=== PATIENT | female | born 1980 | race Caucasian/White ===

== ENCOUNTER → 2017-01-01 | Outpatient (CLI) | payer BC | END | disposition home or self-care (01) | LOC: RADUSWWP 07:47 | PROVIDERS: ATTEND Internal Medicine | DX: Z53.9 Procedure and treatment not carried out, unspecified reason (principal) ==

== ENCOUNTER → 2017-01-01 | Outpatient (CLI) | payer BC ==
--- NOTE | 2017-01-01 10:42 | US ---
EXAMINATION TYPE: US renal artery duplex complete DATE OF EXAM: 01/01/2017 COMPARISON: NONE CLINICAL HISTORY: I10 essential hypertension. HTN for years MEASUREMENTS: RENAL SIZE: Rt Kidney: 13.7 x 4.9 x 5.4cm Lt Kidney: 13.0 x 5.7 x 5.0cm RESISTANCE INDEX Right: 0.59 Left: 0.62 RA/AO RATIO (< 3.5 ) Right: 1.5 Left: 1.9 RA VELOCITY ( < 180 cm/s) Right: 162.9 cm/s Left: 208.2 cm/s Aorta appears unremarkable. Column of Isidro noted right kidney. Bilateral kidneys appear enlarged. Left renal artery upper limit s of normal/minimally increased velocities. Low resistive waveforms noted throughout. Good upstroke a t segmentals at hilum Velocity in the aorta is slightly more prominent than normal suggesting underlying hypertension. No s ignificant increased velocity in either renal artery identified accounting for increased aortic veloc ity. Ratios remain within normal limits bilaterally. Satisfactory arterial phasicity is noted. IMPRESSION: No convincing evidence for focal renal artery stenosis in either kidney.
--- NOTE | 2017-01-08 11:21 | P.ARTDOP ---
Arterial Doppler Upper EXTREMITY ARTERIAL DOPPLER: DATE OF SERVICE: 01/01/2017 Reason for study: Pain. Doppler waveforms: Multiphasic bilaterally throughout. Pressure gradients: No right to left or segmental pressure gradients. Impression: Normal study.
== END | disposition home or self-care (01) ==
LOC: RADUSMAIN 07:55
PROVIDERS: ATTEND Internal Medicine
DX: I10 Essential (primary) hypertension (principal)
CPT/HCPCS: 93923; 93975

== ENCOUNTER → 2018-11-23 | Outpatient (CLI) | payer BC ==
--- NOTE | 2018-11-24 11:47 | US ---
EXAMINATION TYPE: US kidneys/renal and bladder DATE OF EXAM: 11/23/2018 COMPARISON: NONE CLINICAL HISTORY: Hypertension I10. htn, diabetic EXAM MEASUREMENTS: Right Kidney: 13.5 x 6.2 x 5.6 cm Left Kidney: 13.3 x 4.7 x 6.5 cm Right Kidney: No hydronephrosis or masses seen on today's exam Left Kidney: No hydronephrosis or masses seen on today's exam Bladder: wnl Bilateral Jets seen: Yes IMPRESSION: Normal renal ultrasound
== END | disposition home or self-care (01) ==
LOC: RADUSWWP 15:53
PROVIDERS: ATTEND Internal Medicine Cardiovascular Disease
DX: I10 Essential (primary) hypertension (principal)
CPT/HCPCS: 76770